=== PATIENT | female | born 1945 | race Two or more races ===

== ENCOUNTER 2017-06-07 12:45 | Outpatient (CLI) | payer OTHER | END 2017-06-07 12:53 | disposition home or self-care (01) | LOC: RAD 12:45 | DX: R07.81 Pleurodynia (principal) ==

== ENCOUNTER → 2017-06-07 | Outpatient (CLI) | payer OTHER ==
[~2017-06-07] MED LIST: CATAFLAM50 MG PO; GLIPIZIDE5 MG PO; KETO10TA2 PO; MOTRIN800 MG PO; ORPH100T PO; PRES GEN LIQUI474 ML; PROPRANOLOL 10 MG; SYNTHROID175 MCG PO; TESSALON PERLE100 M1 PO; TUSSI PRES-B L120 M1 PO; TUSSI-PRES LIQ118 ML PO; TUSSIN DM CLEA118 ML PO; VASOTEC5 MG PO; XARELTO15 MG
== END | disposition home or self-care (01) ==
LOC: NUCLEAR 13:36
DX: I82.811 Embolism and thrombosis of superficial veins of right lower extremity (principal); I82.3 Embolism and thrombosis of renal vein

== ENCOUNTER → 2017-06-20 | Emergency (ER) | payer OTHER ==
[~2017-06-20] VITALS: Ht 162.6 cm; Wt 75.7 kg
== END | disposition home or self-care (01) ==
LOC: ER 10:40
DX: B34.9 Viral infection, unspecified (principal); J11.1 Influenza due to unidentified influenza virus with other respiratory manifestations

== ENCOUNTER 2017-06-28 13:54 | Emergency (ER) | payer OTHER ==
[~2017-06-28] VITALS: Ht 162.6 cm; Wt 76.7 kg
== END 2017-06-28 14:41 | disposition home or self-care (01) ==
LOC: ER 13:54
DX: B34.9 Viral infection, unspecified (principal)

== ENCOUNTER 2017-08-03 11:36 | Emergency (ER) | payer OTHER ==
[~2017-08-03] VITALS: Ht 162.6 cm; Wt 76.7 kg
== END 2017-08-03 16:15 | disposition home or self-care (01) ==
LOC: ER 11:36
DX: S30.0XXA Contusion of lower back and pelvis, initial encounter (principal); S50.01XA Contusion of right elbow, initial encounter; W18.09XA Striking against other object with subsequent fall, initial encounter; Y93.89 Activity, other specified; Y92.018 Other place in single-family (private) house as the place of occurrence of the external cause; Y99.8 Other external cause status

== ENCOUNTER 2017-09-29 10:56 | Emergency (ER) | payer OTHER ==
[~2017-09-29] VITALS: Ht 162.6 cm; Wt 74.8 kg
[2017-09-29] MEDS ORDERED: NASONEX17 GM TOP (14:00)
[2017-09-29] MEDS ORDERED: SINGULAIR10 MG PO (14:00)
[2017-09-29] MEDS ORDERED: ALAVERT10 M1 PO (14:00)
== END 2017-09-29 14:12 | disposition home or self-care (01) ==
LOC: ER 10:56
DX: J06.9 Acute upper respiratory infection, unspecified (principal); J11.1 Influenza due to unidentified influenza virus with other respiratory manifestations

== ENCOUNTER 2017-12-20 12:27 | Emergency (ER) | payer OTHER ==
[~2017-12-20] VITALS: Ht 162.6 cm; Wt 77.6 kg
[~2017-12-20 12:27] MED LIST changes: +ALAVERT10 M1 PO; +NASONEX17 GM TOP; +SINGULAIR10 MG PO
[2017-12-20] MEDS ORDERED: LISINOPRIL5 MG (12:48)
[2017-12-20] MEDS ORDERED: SIMVASTATIN10 MG (12:49)
[2017-12-20] MEDS ORDERED: ASA81 MG (12:49)
[2017-12-20] MEDS ORDERED: HYDROCHLOROTHIA25 MG PO (15:45)
== END 2017-12-20 16:02 | disposition home or self-care (01) ==
LOC: ER 12:27
DX: R60.0 Localized edema (principal)

== ENCOUNTER → 2018-02-27 | Emergency (ER) | payer OTHER ==
[~2018-02-27] VITALS: Ht 162.6 cm; Wt 78.5 kg
[~2018-02-27] MED LIST changes: +AMOX1TAB5 PO; +ASA81 MG; +HYDROCHLOROTHIA25 MG PO; +LISINOPRIL5 MG; +SIMVASTATIN10 MG
== END | disposition left against medical advice (07) ==
LOC: ER 15:26
DX: Z53.20 Procedure and treatment not carried out because of patient's decision for unspecified reasons (principal)

== ENCOUNTER 2018-02-28 11:06 | Emergency (ER) | payer OTHER ==
[~2018-02-28] VITALS: Ht 162.6 cm; Wt 78.5 kg
[~2018-02-28 11:06] MED LIST changes: -AMOX1TAB5 PO
[2018-02-28] MEDS ORDERED: AMOX1TAB5 PO (14:38)
[2018-02-28] MEDS ORDERED: TUSSI PRES-B L120 M1 PO (14:38)
== END 2018-02-28 14:48 | disposition home or self-care (01) ==
LOC: ER 11:06
DX: B34.9 Viral infection, unspecified (principal); J11.1 Influenza due to unidentified influenza virus with other respiratory manifestations

== ENCOUNTER 2018-09-28 11:54 | Emergency (ER) | payer OTHER ==
[~2018-09-28] VITALS: Ht 175.3 cm; Wt 77.1 kg
[~2018-09-28 11:54] MED LIST changes: +AMOX1TAB5 PO
== END 2018-09-28 15:16 | disposition home or self-care (01) ==
LOC: ER 11:54
DX: J40 Bronchitis, not specified as acute or chronic (principal)

== ENCOUNTER 2019-04-10 14:09 | Emergency (ER) | payer OTHER ==
[~2019-04-10] VITALS: Ht 162.6 cm; Wt 76.7 kg
== END 2019-04-10 17:09 | disposition home or self-care (01) ==
LOC: ER 14:09
DX: B34.9 Viral infection, unspecified (principal)

== ENCOUNTER 2019-04-13 13:11 | Emergency (ER) | payer OTHER ==
[~2019-04-13] VITALS: Ht 162.6 cm; Wt 76.7 kg
[2019-04-13] MEDS ORDERED: TESSALON PERLE100 M1 PO (15:23)
[2019-04-13] MEDS ORDERED: PROMETH-CODEIN 65 ML PO (15:23)
== END 2019-04-13 16:13 | disposition home or self-care (01) ==
LOC: ER 13:11
DX: R05 Cough (principal)

== ENCOUNTER 2019-04-16 10:46 | Emergency (ER) | payer OTHER ==
[~2019-04-16] VITALS: Ht 162.6 cm; Wt 76.7 kg
[~2019-04-16 10:46] MED LIST changes: +PROMETH-CODEIN 65 ML PO
== END 2019-04-16 14:10 | disposition home or self-care (01) ==
LOC: ER 10:46
DX: J40 Bronchitis, not specified as acute or chronic (principal)

== ENCOUNTER 2019-05-08 11:58 | Emergency (ER) | payer OTHER ==
[~2019-05-08] VITALS: Ht 162.6 cm; Wt 76.7 kg
== END 2019-05-08 14:22 | disposition home or self-care (01) ==
LOC: ER 11:58
DX: S30.0XXA Contusion of lower back and pelvis, initial encounter (principal); W06.XXXA Fall from bed, initial encounter; Y93.89 Activity, other specified; Y92.092 Bedroom in other non-institutional residence as the place of occurrence of the external cause; Y99.8 Other external cause status

== ENCOUNTER 2023-04-20 12:54 | Emergency (ER) | payer OTHER ==
[~2023-04-20] VITALS: Ht 162.6 cm; Wt 79.4 kg
[2023-04-20] MEDS ORDERED: DICLOFENAC SODI75 MG PO (14:19)
== END 2023-04-20 14:22 | disposition home or self-care (01) ==
LOC: ER 12:54
DX: S89.81XA Other specified injuries of right lower leg, initial encounter (principal); W18.39XA Other fall on same level, initial encounter; Y93.89 Activity, other specified; Y92.018 Other place in single-family (private) house as the place of occurrence of the external cause; S39.82XA Other specified injuries of lower back, initial encounter; Z88.2 Allergy status to sulfonamides; I10 Essential (primary) hypertension
CPT/HCPCS: 71110; 72100; 73560; 96372; 99284; J1885; J2360

== ENCOUNTER 2024-04-02 12:20 | Emergency (ER) | payer OTHER ==
[~2024-04-02] VITALS: Ht 162.6 cm; Wt 79.4 kg
[~2024-04-02 12:20] MED LIST changes: +DICLOFENAC SODI75 MG PO; +NITROFURANTOIN100 MG PO
[2024-04-02] MEDS ORDERED: KETOROLAC TROMETHAMINE 30 MG VIAL IM STA (16:15)
== END 2024-04-02 17:24 | disposition home or self-care (01) ==
LOC: ER 12:22
DX: S52.91XA Unspecified fracture of right forearm, initial encounter for closed fracture (principal); W19.XXXA Unspecified fall, initial encounter; Y93.89 Activity, other specified; Y92.89 Other specified places as the place of occurrence of the external cause; Y99.8 Other external cause status; M25.531 Pain in right wrist; Z88.2 Allergy status to sulfonamides
CPT/HCPCS: 29125; 72040; 72100; 73090; 73100; 96372; 99283; J1885

== ENCOUNTER 2024-04-24 06:44 | Day surgery (SDC) | payer OTHER ==
[2024-04-20 11:41] LABS: HEMATOCRIT 40.8 % (36.0-45.00); HEMOGLOBIN 13.7 g/dL (12.0-15.00); MEAN CELL VOLUME 86.9 fL (80.00-100.00); MEAN CORPUSCULAR HEMOGLOBIN 29.1 pg (27.00-32.0); MEAN CORPUSCULAR HGB CONC 33.5 g/dl (32.0-36.0); PLATELET COUNT 200 K/uL (150-450); RED CELL DISTRIBUTION WIDTH 13.8 % (11.5-14.5)
[2024-04-20 11:41] LABS: PH,URINE 5.5 (5.0-8.0); URINE APPEARANCE Cloudy; URINE BILIRRUBIN Negative (NEGATIVE); URINE BLOOD Small; URINE COLOR Yellow; URINE GLUCOSE Negative (NEGATIVE); URINE KETONE Negative (NEGATIVE); URINE LEUKOCYTE Moderate; URINE NITRATE Positive; URINE PROTEIN Negative (NEGATIVE); URINE UROBILINOGEN 0.2 E.U./dl
[2024-04-20 11:42] LABS: URINE EPITHELIAL CELLS 16.3 uL (0.0-38.8); URINE RBC 18.4 uL (0.0-20.8); URINE WBC 462.1 uL (0.0-23.2)
[2024-04-20 11:51] VITALS: BP 193/95
[2024-04-20 11:57] LABS: INR 1.04; PARTIAL THROMBOPLASTIN TIME 26.2 SECONDS (22.0-34.0); PROTHROMBIN TIME 11.3 SECONDS (9.0-11.5)
[2024-04-20 12:13] LABS: ALBUMIN 3.7 gm/dL (3.4-5.0); BILIRUBIN TOTAL 0.58 mg/dL (0.3-1.2); CALCIUM 8.7 mg/dL (8.5-10.1); CHOL HDL RATIO 3.1 (0-5.0); CREATININE SERUM 1.08 mg/dL (0.55-1.02); GFR 48.81; GLOBULINA 2.8 G/DL (2.4-3.5); POTASSIUM 4.29 mEq/L (3.5-5.1); TOTAL PROTEIN 6.5 gm/dL (6.4-8.2)
[2024-04-20 12:15] LABS: URINE BACTERIA > 9821.5 uL (0.0-1933); URINE CAST 0.44 uL (0.0-1.40)
[~2024-04-24] VITALS: Ht 162.6 cm; Wt 79.4 kg
[~2024-04-24 06:44] MED LIST changes: +SIMVASTATIN10 MG PO; +SYNTHROID200 MCG PO
[2024-04-24] MEDS ORDERED: CEFAZOLIN SODIUM 1,000 MG VIAL IV ONE (17:00)
[2024-04-24] MEDS ORDERED: ISOPROPYL ALCOHOL 30 ML OUNCE TOP ONE (17:00)
[2024-04-24] MEDS ORDERED: TRAM1TAB98 PO (17:32)
[2024-04-24] MEDS ORDERED: DUI500 PO (17:32)
[2024-04-24] MEDS ORDERED: ALEVE220 M1 PO (17:32)
[2024-04-24] MEDS ORDERED: MORPHINE SULFATE 4 MG/ML VIAL IV ONE ×2 (17:45→18:30)
[2024-04-24] MEDS ORDERED: MEPERIDINE HCL 25 MG/ML AMPUL IV ONE (19:00)
[2024-04-24] MEDS ORDERED: hydrALAZINE HCL 20 MG VIAL IV ONE (19:15)
== END 2024-04-24 19:45 | disposition home or self-care (01) ==
LOC: CIR.AMB 06:44
PROVIDERS: ATTEND Orthopaedic Surgery
DX: S52.531A Colles' fracture of right radius, initial encounter for closed fracture (principal); S52.691A Other fracture of lower end of right ulna, initial encounter for closed fracture; Z88.2 Allergy status to sulfonamides; I10 Essential (primary) hypertension; E03.8 Other specified hypothyroidism; M19.90 Unspecified osteoarthritis, unspecified site; M81.0 Age-related osteoporosis without current pathological fracture
CPT/HCPCS: 25609; 20902; 25101; 26562; L8699

== ENCOUNTER 2024-06-12 13:30 | Outpatient (CLI) | payer OTHER ==
[~2024-06-12 13:30] MED LIST changes: +ALEVE220 M1 PO; +DUI500 PO; +TRAM1TAB98 PO
== END 2024-06-12 13:37 | disposition home or self-care (01) ==
LOC: RAD 13:30
PROVIDERS: ATTEND Physical Medicine & Rehabilitation
DX: S52.501A Unspecified fracture of the lower end of right radius, initial encounter for closed fracture (principal)

== ENCOUNTER → 2024-07-17 10:55 | Outpatient (CLI) | payer OTHER | END | disposition home or self-care (01) | LOC: NUCLEAR 07-09 10:00 | PROVIDERS: ATTEND Physical Medicine & Rehabilitation | DX: M81.0 Age-related osteoporosis without current pathological fracture (principal) ==

== ENCOUNTER 2024-07-27 10:53 | Outpatient (CLI) | payer OTHER | END 2024-07-27 10:58 | disposition home or self-care (01) | LOC: RAD 10:53 | PROVIDERS: ATTEND Internal Medicine | DX: I10 Essential (primary) hypertension (principal); M25.511 Pain in right shoulder ==

== ENCOUNTER 2024-11-13 15:15 | Outpatient (CLI) | payer OTHER | END 2024-11-13 15:22 | disposition home or self-care (01) | LOC: RAD 15:15 | PROVIDERS: ATTEND Physical Medicine & Rehabilitation | DX: M25.511 Pain in right shoulder (principal); M25.531 Pain in right wrist ==

== ENCOUNTER 2024-11-20 13:30 | Outpatient (CLI) | payer OTHER | END 2024-11-20 13:37 | disposition home or self-care (01) | LOC: SONOGRAMA 13:30 | PROVIDERS: ATTEND Physical Medicine & Rehabilitation | DX: M25.531 Pain in right wrist (principal); M75.121 Complete rotator cuff tear or rupture of right shoulder, not specified as traumatic ==

== ENCOUNTER 2024-12-31 13:27 | Outpatient (CLI) | payer OTHER | END 2024-12-31 13:31 | disposition home or self-care (01) | LOC: RAD 13:27 | PROVIDERS: ATTEND Physical Medicine & Rehabilitation | DX: S40.011A Contusion of right shoulder, initial encounter (principal) ==